=== PATIENT | female | born 1945 | race American Indian/Alaskan Native ===

== ENCOUNTER 2021-05-22 07:34 | Outpatient (CLI) | payer MEDICARE ==
--- NOTE | 2021-05-22 08:44 | Cat Scan Report ---
CT ABDOMEN AND PELVIS WITHOUT CONTRAST INDICATION / CLINICAL INFORMATION: LEFT LOWER QUADRANT PAIN. TECHNIQUE: Axial CT images were obtained through the abdomen and pelvis without IV contrast. All CT scans at [facility] are performed using CT dose reduction for ALARA by means of automated exposure control. COMPARISON: None available. FINDINGS: LOWER CHEST: There is an uncomplicated moderate hiatal hernia. No other significant abnormality. LIVER: No significant abnormality. GALLBLADDER: Prior cholecystectomy. BILE DUCTS: No significant abnormality. PANCREAS: No significant abnormality. SPLEEN: No significant abnormality. ADRENALS: No significant abnormality. KIDNEYS / URETERS: No significant abnormality. STOMACH / SMALL BOWEL: No other significant abnormality of the stomach. No significant abnormality of the small bowel. COLON: There is generalized noninflamed diverticulosis without other significant abnormalities. APPENDIX: Not visualized. PERITONEUM: No free fluid. No free air. No fluid collection. LYMPH NODES: No significant adenopathy. AORTA / ARTERIES: Mild atherosclerotic calcification without acute abnormality. IVC / VEINS: No significant abnormality. URINARY BLADDER: No significant abnormality. REPRODUCTIVE ORGANS: Uterus is absent. No significant adnexal abnormality. ADDITIONAL FINDINGS: None. BONES: Moderate/severe degenerative changes are noted along the lower lumbar spine with mild degenera tive changes seen elsewhere along the spine and pelvis. No acute findings. IMPRESSION: 1. No acute abnormality to explain the patient's pain. 2. Noninflamed colonic diverticulosis. 3. Additional findings as above. Signer Name: Yuan Beasley MD Signed: 05/22/2021 8:39 AM Workstation Name: [id number]
== END 2021-05-22 07:35 | disposition home or self-care (01) ==
LOC: CT 07:34
PROVIDERS: ATTEND Urology
DX: K44.9 Diaphragmatic hernia without obstruction or gangrene (principal); K57.30 Diverticulosis of large intestine without perforation or abscess without bleeding; I70.0 Atherosclerosis of aorta; M47.816 Spondylosis without myelopathy or radiculopathy, lumbar region
CPT/HCPCS: 74176